=== PATIENT | female | born 1955 | race Caucasian/White ===

== ENCOUNTER 2021-06-09 10:23 | Outpatient (CLI) | payer BC ==
[2021-06-09 17:08] LABS: SARS-CoV-2 PCR by NAA Not Detected (NotDetected)
== END 2021-06-09 10:24 | disposition home or self-care (01) ==
LOC: CSHLAB 10:23
PROVIDERS: ATTEND Neurological Surgery
DX: Z01.812 Encounter for preprocedural laboratory examination (principal); Z20.822 Contact with and (suspected) exposure to COVID-19; K63.5 Polyp of colon
CPT/HCPCS: U0003; U0005

== ENCOUNTER 2021-06-14 07:10 | Day surgery (SDC) | payer BC ==
[2021-06-11 09:24] VITALS: BMI 23.2
[~2021-06-14 07:10] MED LIST: PROPOFOL 20 ML ONE
[2021-06-14] MEDS ORDERED: Lidocaine 1% MPF 2 ML VIAL ONE (07:33)
[2021-06-14] MEDS ORDERED: Lidocaine 1% PF 5 ML VIAL ONE (08:56)
[2021-06-14] MEDS ORDERED: PROPOFOL 20 ML ONE (09:01)
== END 2021-06-14 10:07 | disposition home or self-care (01) ==
LOC: CSHSDC 07:10
PROVIDERS: ATTEND Internal Medicine Gastroenterology
PROC: 0DJD8ZZ Inspection of Lower Intestinal Tract, Via Natural or Artificial Opening Endoscopic (ICD-10-PCS; principal; 2021-06-14)
DX: Z12.11 Encounter for screening for malignant neoplasm of colon (principal); K57.30 Diverticulosis of large intestine without perforation or abscess without bleeding; Z86.010 Personal history of colon polyps; I10 Essential (primary) hypertension; E78.5 Hyperlipidemia, unspecified
CPT/HCPCS: J2704

== ENCOUNTER 2025-04-10 07:40 | Outpatient (CLI) | payer BC | END 2025-04-10 07:41 | disposition home or self-care (01) | LOC: CSHMAMMO 07:40 | PROVIDERS: ATTEND Family Medicine | DX: N63.20 Unspecified lump in the left breast, unspecified quadrant (principal); N60.02 Solitary cyst of left breast | CPT/HCPCS: G0279 ==